=== PATIENT | male | born 1975 | race Caucasian/White ===

== ENCOUNTER 2017-07-03 08:00 | Outpatient (RCR) | payer BC | END 2017-07-07 | disposition home or self-care (01) | DX: M54.9 Dorsalgia, unspecified (principal) ==

== ENCOUNTER 2017-07-24 08:06 | Outpatient (RCR) | payer BC | END 2017-07-24 10:04 | disposition home or self-care (01) | DX: M54.9 Dorsalgia, unspecified (principal) ==